=== PATIENT | female | born 1940 | race Two or more races ===

== ENCOUNTER 2023-08-13 22:33 | Emergency (ER) | payer MEDICARE, MEDICAID ==
[~2023-08-13] VITALS: Ht 149.9 cm; Wt 50.3 kg
[2023-08-14 00:09] VITALS: BP 174/68; PULSE 69; RESP 18; TEMP 98.3; O2SAT 95
== END 2023-08-14 01:20 | disposition left against medical advice (07) ==
LOC: ER 22:33
DX: M25.551 Pain in right hip (principal); M25.561 Pain in right knee; I16.0 Hypertensive urgency; E78.5 Hyperlipidemia, unspecified; W01.0XXA Fall on same level from slipping, tripping and stumbling without subsequent striking against object, initial encounter; Y93.89 Activity, other specified; Y92.89 Other specified places as the place of occurrence of the external cause; Y99.8 Other external cause status
CPT/HCPCS: 29505; 72192; 73562